=== PATIENT | male | born 1990 | race American Indian/Alaskan Native ===

== ENCOUNTER 2016-12-13 11:16 | Emergency (ER) | payer BC, OTHER ==
--- NOTE | 2016-12-13 14:00 | Emergency Department Report ---
Chief Complaint: Urogenital-Male Stated Complaint: RASH RT ARM Time Seen by Provider: 12/13/16 13:43 - HPI History of Present Illness: 26-year-old male presents today with yellow penile discharge 3 days. Patient states he had unprotected sex with 2 partners. Positive for history of gonorrhea and has been treated in the past. Positive for minimal burning upon urination. Denies blood in urine, increased urinary frequency or urgency. Denies fever, chills, nausea, vomiting, chest pain, shortness of breath, abdominal pain. - ROS Review of Systems: Per HPI - Exam Vital Signs: Vital Signs 12/13/16 11:21 Temperature 98.0 F Pulse Rate 76 Respiratory 18 Rate Blood Pressure 112/77 O2 Sat by Pulse 100 Oximetry Physical Exam: GENERAL: The patient is well-developed and well-nourished. Patient is in NAD. HEAD: Normocephalic. Atraumatic. CHEST/LUNGS: Clear to auscultation throughout. HEART/CARDIOVASCULAR: Regular rate and rhythm. No murmurs, rubs or gallops. ABDOMEN: Abdomen is soft, nontender. Bowel sounds normoactive. No guarding or rebound tenderness. There are for CVA tenderness bilaterally. EXTREMITIES: Peripheral pulses intact. Capillary refill less than 2 seconds. NEURO: Alert and oriented x 3. Normal gait. MSE screening note: Focused history and physical exam performed. Due to findings the following was ordered: ED Disposition for MSE Disposition: MEDICAL SCREENING EXAM-LEFT Condition: Stable Referrals: PRIMARY CARE, [Primary Care Provider] - 3-5 Days
[2016-12-13 15:00] LABS: Mucus,Urine FEW /HPF; WBC,Urine < 1.0 /HPF (0.0-6.0)
[2016-12-13 15:07] LABS: Bilirubin,Urine Negative (Negative); Blood,Urine Trace (Negative); Ketones,Urine Negative (Negative); Leukocyte Esterase,Urine Negative (Negative); Nitrite,Urine Negative (Negative); PH,Urine 7.5 (5.0-7.0); Protein,Urine <15 mg/dL mg/dL (Negative); Urobilinogen,Urine 0.2 mg/dL (<2.0)
[2016-12-13] MEDS ORDERED: XYLOCAINE 1% MPF 5 mL INFILTRATI ONE (15:18)
[2016-12-13] MEDS ORDERED: ROCEPHIN IM ONE (15:18)
[2016-12-13] MEDS ORDERED: ZITHROMAX PO ONE (15:18)
--- NOTE | 2016-12-13 15:19 | Emergency Department Report ---
HPI - General Chief Complaint: Urogenital-Male Time Seen by Provider: 12/13/16 13:43 - HPI HPI: 26-year-old male presents today with yellow penile discharge 3 days. Patient states he had unprotected sex with 2 partners. Positive for possible exposure. Positive for history of gonorrhea and has been treated in the past. Positive for minimal burning upon urination. Denies blood in urine, increased urinary frequency or urgency. Denies fever, chills, nausea, vomiting, chest pain, shortness of breath, abdominal pain. ED Past Medical Hx - Past Medical History Previous Medical History?: No - Surgical History Past Surgical History?: No - Social History Smoking Status: Current Every Day Smoker Substance Use Type: Alcohol, Marijuana - Medications Home Medications: Home Medications Medication Instructions Recorded Confirmed Last Taken Type Ciprofloxacin HCl [Cipro] 500 mg PO Q12H #14 tab 01/08/15 Unknown Rx ED Review of Systems ROS: Stated complaint: RASH RT ARM Other details as noted in HPI Constitutional: denies: chills, fever, malaise Eyes: denies: eye pain ENT: denies: ear pain, throat pain, congestion Respiratory: denies: cough, shortness of breath, wheezing Cardiovascular: denies: chest pain, palpitations Endocrine: no symptoms reported Gastrointestinal: denies: abdominal pain, nausea, vomiting Genitourinary: dysuria, discharge. denies: urgency, frequency, hematuria, testicular pain, testicular mass Musculoskeletal: denies: back pain Neurological: denies: headache, weakness Physical Exam - Physical Exam Vital Signs: Vital Signs 12/13/16 11:21 Temperature 98.0 F Pulse Rate 76 Respiratory 18 Rate Blood Pressure 112/77 O2 Sat by Pulse 100 Oximetry Physical Exam: GENERAL: The patient is well-developed and well-nourished. Patient is in NAD. HEAD: Normocephalic. Atraumatic. CHEST/LUNGS: Clear to auscultation throughout. HEART/CARDIOVASCULAR: Regular rate and rhythm. No murmurs, rubs or gallops. ABDOMEN: Abdomen is soft, nontender. Bowel sounds normoactive. No guarding or rebound tenderness. Negative for CVA tenderness bilaterally. EXTREMITIES: Peripheral pulses intact. Capillary refill less than 2 seconds. NEURO: Alert and oriented x 3. Normal gait. ED Course Vital Signs 12/13/16 11:21 Temperature 98.0 F Pulse Rate 76 Respiratory 18 Rate Blood Pressure 112/77 O2 Sat by Pulse 100 Oximetry ED Medical Decision Making - Lab Data Vital Signs 12/13/16 11:21 Temperature 98.0 F Pulse Rate 76 Respiratory 18 Rate Blood Pressure 112/77 O2 Sat by Pulse 100 Oximetry - Medical Decision Making 26-year-old male presents today with yellow discharge 3 days. His urinalysis reveals trace of blood but is otherwise negative. Patient has been given azithromycin and ceftriaxone. Patient is in no acute distress at this time. He will be discharged home and is encouraged to follow up with a primary care provider. He is encouraged to return to the emergency room for any worsening symptoms. Critical care attestation.: If time is entered above; I have spent that time in minutes in the direct care of this critically ill patient, excluding procedure time. ED Disposition Clinical Impression: Penile discharge Disposition: DISCHARGED TO HOME OR SELFCARE Is pt being admited?: No Does the pt Need Aspirin: No Condition: Stable Instructions: Gonococcal Urethritis (ED), Chlamydia Infection (ED) Additional Instructions: Follow up with primary care provider. Return to the emergency department if symptoms worsen. Referrals: PRIMARY CARE, [Primary Care Provider] - 3-5 Days [facility] [Outside] - 3-5 Days Forms: Work/School Release Form(ED), STI Treatment and Prevention Time of Disposition: 15:21
[2016-12-13 16:06] VITALS: BP 115/70
== END 2016-12-13 16:04 | disposition home or self-care (01) ==
LOC: ED 11:16
DX: R36.9 Urethral discharge, unspecified (principal); F17.200 Nicotine dependence, unspecified, uncomplicated; F12.10 Cannabis abuse, uncomplicated
CPT/HCPCS: 81001; 87591; 96372; 99282; J0696

== ENCOUNTER 2017-03-14 08:08 | Emergency (ER) | payer SELFPAY ==
[2017-03-14 08:36] VITALS: BP 130/99
[2017-03-14] MEDS ORDERED: PERCOCET 5/325 PO ONE (11:10)
[2017-03-14] MEDS ORDERED: ZOFRAN ODT PO ONE (11:10)
[2017-03-14] MEDS ORDERED: MARCAINE 0.5% INFILTRATI NR (12:00)
[2017-03-14] MEDS ORDERED: BOOSTRIX IM ONE (12:45)
--- NOTE | 2017-03-14 12:51 | Emergency Department Report ---
Entered by ULYSSES LEONG, acting as scribe for TERRY VAIL PA. - General Chief complaint: Skin/Abscess/Foreign Body Stated complaint: BOIL Time Seen by Provider: 03/14/17 09:20 Source: patient Mode of arrival: Ambulatory Limitations: No Limitations - History of Present Illness Initial comments: 26 y/o male presents to ED c/o boil to his right buttocks since 1 week ago. He reports 10/10 in severity pain. Pt notes mild drainage yesterday. He admits to administering OTC Tylenol with no relief. He denies fever, chills, nausea, vomiting. Pt has no additional complaints MD complaint: abscess/boil Onset/Timin -: Gradual, week(s) Location: buttocks Severity: severe Severity scale (0 -10): 10 Quality: constant Consistency: constant Improves with: rest Worsens with: palpation, movement Context: other (unknown) Associated symptoms: denies other symptoms Treatments Prior to Arrival: other (Tylenol OTC) - Related Data Previous Rx's Medication Instructions Recorded Last Taken Type Ciprofloxacin HCl [Cipro] 500 mg PO Q12H #14 tab 01/08/15 Unknown Rx HYDROcodone/APAP 5-325 [[place] 1 each PO Q6HR PRN #12 tablet 03/14/17 Unknown Rx 5/325] Ibuprofen [Motrin] 600 mg PO Q8H PRN #15 tablet 03/14/17 Unknown Rx Sulfamethoxazole/Trimethoprim 1 each PO BID #20 tablet 03/14/17 Unknown Rx [Bactrim DS TAB] Allergies Allergy/AdvReac Type Severity Reaction Status Date / Time No Known Allergies Allergy Unverified 01/07/15 23:34 Abscess Boil HPI - HPI Chief Complaint: Skin/Abscess/Foreign Body Stated Complaint: BOIL Time Seen by Provider: 03/14/17 11:00 Duration: 1 Week Location: Other (buttocks) Severity: Severe (10/10) History: Yes Purulent Drainage, No Fever Home Medications: Previous Rx's Medication Instructions Recorded Last Taken Type Ciprofloxacin HCl [Cipro] 500 mg PO Q12H #14 tab 01/08/15 Unknown Rx HYDROcodone/APAP 5-325 [[place] 1 each PO Q6HR PRN #12 tablet 03/14/17 Unknown Rx 5/325] Ibuprofen [Motrin] 600 mg PO Q8H PRN #15 tablet 03/14/17 Unknown Rx Sulfamethoxazole/Trimethoprim 1 each PO BID #20 tablet 03/14/17 Unknown Rx [Bactrim DS TAB] Allergies/Adverse Reactions: Allergies Allergy/AdvReac Type Severity Reaction Status Date / Time No Known Allergies Allergy Unverified 01/07/15 23:34 ED Review of Systems Comment: All other systems reviewed and negative Constitutional: denies: chills, fever ENT: denies: throat pain, congestion Respiratory: no symptoms reported Cardiovascular: denies: chest pain, palpitations, edema, syncope Gastrointestinal: denies: abdominal pain, nausea, vomiting Genitourinary: denies: urgency, dysuria, frequency, hematuria, testicular pain, testicular mass Musculoskeletal: denies: joint swelling Skin: other (abscess). denies: rash Neurological: denies: headache ED Past Medical Hx - Past Medical History Previous Medical History?: No - Surgical History Past Surgical History?: No - Family History Family history: no significant - Social History Smoking Status: Current Every Day Smoker Substance Use Type: Alcohol - Medications Home Medications: Home Medications Medication Instructions Recorded Confirmed Last Taken Type Ciprofloxacin HCl [Cipro] 500 mg PO Q12H #14 tab 01/08/15 Unknown Rx HYDROcodone/APAP 5-325 [[place] 1 each PO Q6HR PRN #12 tablet 03/14/17 Unknown Rx 5/325] Ibuprofen [Motrin] 600 mg PO Q8H PRN #15 tablet 03/14/17 Unknown Rx Sulfamethoxazole/Trimethoprim 1 each PO BID #20 tablet 03/14/17 Unknown Rx [Bactrim DS TAB] ED Physical Exam - General Limitations: No Limitations General appearance: alert, in no apparent distress - Head Head exam: Present: atraumatic, normocephalic, normal inspection - Eye Eye exam: Present: normal appearance - ENT ENT exam: Present: normal exam, normal orophraynx, mucous membranes moist, normal external ear exam - Neck Neck exam: Present: normal inspection, full ROM. Absent: tenderness, lymphadenopathy - Respiratory Respiratory exam: Present: normal lung sounds bilaterally. Absent: respiratory distress, wheezes, rales, rhonchi, chest wall tenderness - Cardiovascular Cardiovascular Exam: Present: regular rate, normal rhythm, normal heart sounds. Absent: systolic murmur, diastolic murmur - GI/Abdominal GI/Abdominal exam: Present: soft, normal bowel sounds. Absent: distended, tenderness, guarding, rebound - exam: Present: normal inspection External exam: Present: normal external exam - Extremities Exam Extremities exam: Present: normal inspection, full ROM, normal capillary refill. Absent: tenderness, pedal edema, joint swelling, calf tenderness, other (clubbing, cyanosis, edema) - Back Exam Back exam: Present: normal inspection, full ROM. Absent: tenderness, CVA tenderness (R), CVA tenderness (L), muscle spasm, paraspinal tenderness, vertebral tenderness, rash noted - Neurological Exam Neurological exam: Present: alert, oriented X3, normal gait, reflexes normal. Absent: motor sensory deficit - Psychiatric Psychiatric exam: Present: normal affect, normal mood - Skin Skin exam: Present: warm, dry - Expanded Skin Exam Expanded Type of lesion: Present: abscess (3 cm x 3 cm to distal right inner lateral buttocks, indurated with erythema and tenderness to palpation, mild fluctuance) Distribution of rash: other (rt inner latera/distal buttocks) Description of rash: Present: size (3 cm), tenderness, erythematous, swelling, fluctuant, indurated. Absent: discharge ED Course Vital Signs 03/14/17 08:34 Temperature 99 F Pulse Rate 78 Respiratory 16 Rate Blood Pressure 130/99 O2 Sat by Pulse 100 Oximetry - Reevaluation(s) Reevaluation #1: 03/14/17 12:41 Patient given Percocet 5/325 mg 2 tablets emergency room, Zofran 4 mg ODT. This was done pre-incision and drainage. - I & D Right Lateral Distal Buttocks Type of Procedure: Complex Site: right distal, in her lateral buttocks. Blade Size: 11 I & D Procedure: betadine prep, sterile drapes applied, sterile dressing applied , gauze wick placed Progress: 10 cc of Marcaine use to numb site prior to incision and drainage. Tolerated procedure well . Patient instructed to return in 4 days for removal of packing. ED Medical Decision Making - Medical Decision Making ED course: Patient here with complex abscess status post incision and drainage. See procedure note for detail. He also has cellulitis around the abscess site. Patient was given Percocet 5/325 mg 2 tablets and Zofran 4 mg ODT. Incision and drainage. Patient instructed to return in 4 days after being on antibiotic for removal of packing. He was understanding of diagnosis and treatment plan. Tetanus vaccine is updated. Patient discharged home with prescription for Umbarger, Motrin and Bactrim DS. ED Disposition Clinical Impression: Cellulitis and abscess of buttock, Encounter for incision and drainage procedure Disposition: DISCHARGED TO HOME OR SELFCARE Is pt being admited?: No Does the pt Need Aspirin: No Condition: Stable Instructions: Cellulitis (ED), Abscess Incision and Drainage (ED) Additional Instructions: Return to the emergency room in 4 days after taking antibiotic to get packing removed. Please apply warm compresses to affected area 4 times a day. Do not remove packing. Take antibiotic as prescribed. Umbarger will cause drowsiness, please do not drive or operate heavy machinery while taking this medication. Prescriptions: HYDROcodone/APAP 5-325 [U[place]arger 5/325] 1 each PO Q6HR PRN #12 tablet PRN Reason: Pain Ibuprofen [Motrin] 600 mg PO Q8H PRN #15 tablet PRN Reason: Pain Sulfamethoxazole/Trimethoprim [Bactrim DS TAB] 1 each PO BID #20 tablet Referrals: return ,To ER [Other] - 03/18/17 Forms: Work/School Release Form(ED) This documentation as recorded by the SALO valera AHSAN,accurately reflects the service I personally performed and the decisions made by ,TERRY VAIL PA.
== END 2017-03-14 12:30 | disposition home or self-care (01) ==
LOC: ED 08:08
DX: L02.31 Cutaneous abscess of buttock (principal); F17.200 Nicotine dependence, unspecified, uncomplicated
CPT/HCPCS: 90471; 90715; Q0162

== ENCOUNTER 2022-08-07 05:09 | Emergency (ER) | payer SELFPAY ==
--- NOTE | 2022-08-07 06:05 | XRay Report ---
LEFT SHOULDER 3 VIEW(S) INDICATION / CLINICAL INFORMATION: INJURY. COMPARISON: None available. FINDINGS: BONES / JOINT(S): No acute fracture or subluxation. No significant arthritis. SOFT TISSUES: No significant abnormality. ADDITIONAL FINDINGS: None. IMPRESSION: 1. No acute findings. Signer Name: Ben Guadalupe MD Signed: 08/07/2022 6:00 AM Workstation Name: [id number]
[2022-08-07] MEDS ORDERED: CYCLOBENZAPRINE 10 MG TAB PO ONE (10:03)
[2022-08-07] MEDS ORDERED: predniSONE 20 MG TAB PO ONE (10:03)
[2022-08-07] MEDS ORDERED: oxyCODONE /ACETAMINOPHEN 5-325MG TAB PO ONE (10:03)
[2022-08-07] MEDS ORDERED: KETOROLAC 10 MG TAB PO ONE (10:03)
--- NOTE | 2022-08-07 10:46 | Emergency Department Report ---
ED Upper Extremity Inj HPI - General Chief Complaint: Extremity Injury, Upper Stated Complaint: LEFT ARM INJURY Time Seen by Provider: 08/07/22 09:53 Source: patient Mode of arrival: Ambulatory Limitations: No Limitations - Related Data Previous Rx's Medication Instructions Recorded Last Taken Type Ciprofloxacin HCl [Cipro] 500 mg PO Q12H #14 tab 01/08/15 Unknown Rx HYDROcodone/APAP 5-325 [[place] 1 each PO Q6HR PRN #12 tablet 03/14/17 Unknown Rx 5/325] Ibuprofen [Motrin] 600 mg PO Q8H PRN #15 tablet 03/14/17 Unknown Rx Sulfamethoxazole/Trimethoprim 1 each PO BID #20 tablet 03/14/17 Unknown Rx [Bactrim DS TAB] Cyclobenzaprine [Flexeril] 10 mg PO TID PRN #30 tab 08/07/22 Unknown Rx Ketorolac [Toradol] 10 mg PO Q6H PRN #12 tab 08/07/22 Unknown Rx Allergies Allergy/AdvReac Type Severity Reaction Status Date / Time No Known Allergies Allergy Unverified 01/07/15 23:34 ED Review of Systems ROS: Stated complaint: LEFT ARM INJURY Other details as noted in HPI ED Past Medical Hx - Past Medical History Previous Medical History?: Yes - Surgical History Past Surgical History?: No - Social History Smoking Status: Unknown if ever smoked - Medications Home Medications: Home Medications Medication Instructions Recorded Confirmed Last Taken Type Ciprofloxacin HCl [Cipro] 500 mg PO Q12H #14 tab 01/08/15 Unknown Rx HYDROcodone/APAP 5-325 [[place] 1 each PO Q6HR PRN #12 tablet 03/14/17 Unknown Rx 5/325] Ibuprofen [Motrin] 600 mg PO Q8H PRN #15 tablet 03/14/17 Unknown Rx Sulfamethoxazole/Trimethoprim 1 each PO BID #20 tablet 03/14/17 Unknown Rx [Bactrim DS TAB] Cyclobenzaprine [Flexeril] 10 mg PO TID PRN #30 tab 08/07/22 Unknown Rx Ketorolac [Toradol] 10 mg PO Q6H PRN #12 tab 08/07/22 Unknown Rx ED Physical Exam - General Limitations: No Limitations ED Course Vital Signs 08/07/22 05:14 Temperature 98.7 F Pulse Rate 77 Respiratory 18 Rate Blood Pressure 127/90 O2 Sat by Pulse 96 Oximetry Critical care attestation.: If time is entered above; I have spent that time in minutes in the direct care of this critically ill patient, excluding procedure time. ED Disposition Clinical Impression: Left shoulder pain Qualifiers: Chronicity: acute Qualified Code(s): M25.512 - Pain in left shoulder Disposition: 01 HOME / SELF CARE / HOMELESS Is pt being admited?: No Does the pt Need Aspirin: No Condition: Stable Instructions: Shoulder Pain, [id number], How to Use Cold Therapy, [id number], Musculoskeletal Pain, Joint Pain, [id number] Additional Instructions: Take medications as prescribed. Follow-up with your primary care provider or orthopedics if no improvement or worsening symptoms. Return to the emergency department as needed. Prescriptions: Cyclobenzaprine [Flexeril] 10 mg PO TID PRN #30 tab PRN Reason: Muscle Spasm Ketorolac [Toradol] 10 mg PO Q6H PRN #12 tab PRN Reason: Pain Referrals: MARI BATISTA MD [Staff Physician] - 3-5 Days RACHEL CAI MD [Staff Physician] - 3-5 Days Forms: Work/School Release Form(ED) Time of Disposition: 10:45
[2022-08-07 11:06] VITALS: BP 130/88
== END 2022-08-07 11:06 | disposition home or self-care (01) ==
LOC: ED 05:09
DX: M25.512 Pain in left shoulder (principal); Z98.890 Other specified postprocedural states; Z79.899 Other long term (current) drug therapy
CPT/HCPCS: 99283